=== PATIENT | female | born 1995 | race Caucasian/White ===

== ENCOUNTER 2023-05-03 06:41 | Inpatient (IN) | payer OTHER ==
[2023-05-03 06:53] VITALS: BMI 24.7
[2023-05-03] MEDS ORDERED: HYDROmorphone HCl 2 MG/ML VIAL ONE ×4 (07:53→10:40)
[2023-05-03] MEDS: SODIUM CHLORIDE 0.9% 500 ML INFUS.BAG IV ONE (08:21)
[2023-05-03] MEDS: HYDROmorphone HCl 2 MG/ML VIAL IVPUSH ONE ×4 (08:21→10:49)
[2023-05-03 08:31] LABS: VENOUS O2 SATURATION 26.2 % (70-80); VENOUS PCO2 50.3 mmHg (38-52); VENOUS PH 7.349 (7.310-7.410)
[2023-05-03 08:38] LABS: EOS % 6.7 % (0-4.5); HEMATOCRIT 25.7 % (32.4-45.2); HEMOGLOBIN 8.7 GM/dL (10.7-15.3); LYMPH % 46.8 % (8-40); MCH 30.1 pg (25.7-33.7); MCHC 33.7 g/dl (32.0-36.0); MEAN CELL VOLUME 89.1 fl (80-96); MEAN PLT VOLUME 7.5 fl (7.5-11.1); MONO % 11.5 % (3.8-10.2); PLATELET COUNT 568 10^3/uL (134-434); RBC 2.88 M/mm3 (3.60-5.2); RDW 20.6 % (11.6-15.6); RETICULOCYTES 4.62 % (0.5-1.5); WHITE BLOOD COUNT 8.1 K/mm3 (4.0-10.0)
[2023-05-03 09:04] LABS: CALCIUM 9.3 mg/dL (8.5-10.1)
[2023-05-03 09:05] LABS: BLOOD UREA NITROGEN 4.6 mg/dL (7-18)
[2023-05-03 09:07] LABS: CREATININE 0.7 mg/dL (0.55-1.3)
[2023-05-03 09:10] LABS: BILIRUBIN,TOTAL 1.3 mg/dL (0.2-1); TOT PROT 8.9 g/dl (6.4-8.2)
[2023-05-03 09:49] LABS: PH,URINE 6.5 (5.0-8.0); URINE APPEARANCE CLEAR; URINE BILIRUBIN NEGATIVE (NEGATIVE); URINE COLOR YELLOW; URINE GLUCOSE (UA) NEGATIVE (NEGATIVE); URINE KETONE NEGATIVE (NEGATIVE); URINE LEUK ESTERASE NEGATIVE (NEGATIVE); URINE NITRITE NEGATIVE (NEGATIVE); URINE PROTEIN NEGATIVE (NEGATIVE); URINE UROBILINOGEN 0.2 mg/dL (0.2-1.0)
[2023-05-03 10:33] LABS: ANISOCYTOSIS 2+; MACROCYTOSIS 0; OVALOCYTE 1+; TARGET CELLS 3+
[2023-05-03] MEDS ORDERED: ACETAMINOPHEN INJECTION 100 ML IVPB ONE (10:41)
[2023-05-03] MEDS ORDERED: KETOROLAC TROMETHAMINE 15 MG/ML VIAL ONE (10:41)
[2023-05-03] MEDS: ACETAMINOPHEN 1000 MG/100 ML BAG IVPB ONE (10:48)
[2023-05-03] MEDS: KETOROLAC TROMETHAMINE 15 MG/ML VIAL IVPUSH ONE (10:49)
[2023-05-03 11:05] LABS: POTASSIUM 5.1 mmol/L (3.5-5.1)
[2023-05-03 11:06] LABS: CALCIUM 8.9 mg/dL (8.5-10.1)
[2023-05-03 11:07] LABS: BLOOD UREA NITROGEN 3.9 mg/dL (7-18)
[2023-05-03 11:10] LABS: CREATININE 0.8 mg/dL (0.55-1.3)
[2023-05-03] MEDS ORDERED: APIXABAN 5 MG TABLET ONE (13:32)
[2023-05-03] MEDS ORDERED: LORATADINE 10 MG TABLET ONE (13:32)
[2023-05-03] MEDS ORDERED: oxyCODONE HCL 5 MG TABLET ONE (13:33)
[2023-05-03] MEDS: oxyCODONE HCL 5 MG TABLET PO PRN (13:43)
[2023-05-03] MEDS: APIXABAN 5 MG TABLET PO SCH (13:48)
[2023-05-03] MEDS: LORATADINE 10 MG TABLET PO SCH (13:48)
[2023-05-03] MEDS: LACTATED RINGERS SOLUTION 1,000 ML/1,000 ML INFUS.BAG IV SCH (13:56)
[2023-05-03] MEDS ORDERED: HYDROmorphone HCl 2 MG/ML VIAL IVPUSH PRN (15:00)
[2023-05-03] MEDS: HYDROXYUREA 500 MG CAPSULE PO SCH (18:23)
[2023-05-03] MEDS: HYDROmorphone HCl 2 MG/ML VIAL IVPB PRN (18:40)
[2023-05-03] MEDS: KETOROLAC TROMETHAMINE 15 MG/ML VIAL IVPUSH PRN (20:17)
[2023-05-03] MEDS: SENNOSIDES 8.8 MG/5 ML SYRUP PO SCH (23:09)
[2023-05-04] MEDS: PANTOPRAZOLE 40 MG TABLET PO SCH (10:45)
[2023-05-04] MEDS: FOLIC ACID 1 MG TABLET (FP) PO SCH (12:14)
[2023-05-04 12:35] LABS: HEMATOCRIT 22.9 % (32.4-45.2); HEMOGLOBIN 7.8 GM/dL (10.7-15.3); MCH 30.6 pg (25.7-33.7); MCHC 34.2 g/dl (32.0-36.0); MEAN CELL VOLUME 89.6 fl (80-96); PLATELET COUNT 483 10^3/uL (134-434); RBC 2.55 M/mm3 (3.60-5.2); RDW 19.7 % (11.6-15.6)
[2023-05-04 13:17] LABS: POTASSIUM 3.9 mmol/L (3.5-5.1)
[2023-05-04 13:24] LABS: BLOOD UREA NITROGEN 5.8 mg/dL (7-18); CALCIUM 8.8 mg/dL (8.5-10.1)
[2023-05-04 13:26] LABS: ALBUMIN 3.3 g/dl (3.4-5.0); MAGNESIUM 1.9 mg/dL (1.8-2.4)
[2023-05-04 13:29] LABS: CREATININE 0.7 mg/dL (0.55-1.3); PHOSPHOROUS 4.3 mg/dL (2.5-4.9)
[2023-05-04 13:30] LABS: BILIRUBIN,TOTAL 1.4 mg/dL (0.2-1); TOT PROT 7.1 g/dl (6.4-8.2)
[2023-05-04] MEDS ORDERED: ACETAMINOPHEN 1000 MG/100 ML BAG IVPB PRN (15:57)
[2023-05-04] MEDS: oxyCODONE HCL 5 MG TABLET PO PRN (16:16)
[2023-05-04] MEDS: morphine SULFATE 4 MG/ML VIAL IVPUSH PRN (18:58)
[2023-05-05] MEDS: SODIUM CHLORIDE 1,000 ML IV SCH (13:38)
[2023-05-06 11:30] LABS: HEMATOCRIT 19.9 % (32.4-45.2); MCH 30.3 pg (25.7-33.7); MCHC 34.1 g/dl (32.0-36.0); MEAN CELL VOLUME 88.8 fl (80-96); MEAN PLT VOLUME 7.1 fl (7.5-11.1); PLATELET COUNT 407 10^3/uL (134-434); RBC 2.24 M/mm3 (3.60-5.2); RDW 19.3 % (11.6-15.6); WHITE BLOOD COUNT 9.3 K/mm3 (4.0-10.0)
[2023-05-06 11:37] LABS: HEMOGLOBIN 6.8 GM/dL (10.7-15.3)
[2023-05-06 11:41] LABS: POTASSIUM 3.8 mmol/L (3.5-5.1)
[2023-05-06 11:44] LABS: BLOOD UREA NITROGEN 7.6 mg/dL (7-18)
[2023-05-06 11:47] LABS: CREATININE 0.8 mg/dL (0.55-1.3)
[2023-05-06 11:48] LABS: BILIRUBIN,TOTAL 1.3 mg/dL (0.2-1); TOT PROT 6.5 g/dl (6.4-8.2)
[2023-05-06] MEDS: morphine SULFATE 4 MG/ML VIAL IVPUSH PRN (15:44)
[2023-05-07 06:48] VITALS: RESP 18
[2023-05-07 09:11] LABS: HEMATOCRIT 23.3 % (32.4-45.2); HEMOGLOBIN 8.1 GM/dL (10.7-15.3); MCH 30.7 pg (25.7-33.7); MCHC 34.9 g/dl (32.0-36.0); MEAN CELL VOLUME 87.9 fl (80-96); MEAN PLT VOLUME 7.2 fl (7.5-11.1); PLATELET COUNT 406 10^3/uL (134-434); RBC 2.65 M/mm3 (3.60-5.2); RDW 18.7 % (11.6-15.6); WHITE BLOOD COUNT 8.1 K/mm3 (4.0-10.0)
[2023-05-07 09:26] LABS: POTASSIUM 3.1 mmol/L (3.5-5.1)
[2023-05-07 09:28] LABS: CALCIUM 8.1 mg/dL (8.5-10.1)
[2023-05-07 09:29] LABS: ALBUMIN 2.7 g/dl (3.4-5.0); BLOOD UREA NITROGEN 5.9 mg/dL (7-18)
[2023-05-07 09:32] LABS: CREATININE 0.7 mg/dL (0.55-1.3)
[2023-05-07 09:33] LABS: TOT PROT 6.4 g/dl (6.4-8.2)
[2023-05-07 14:09] VITALS: BP 110/67; PULSE 81; TEMP 98.7
== END 2023-05-07 14:14 | disposition home or self-care (01) | DRG 662 ==
LOC: JER 06:41 → JERBED 10:33 → OBSVTOIN 12:09 → J5S 17:33
PROVIDERS: ADMIT Internal Medicine
DX: D57.00 Hb-SS disease with crisis, unspecified (principal); F11.20 Opioid dependence, uncomplicated; E87.5 Hyperkalemia; M25.532 Pain in left wrist; F39 Unspecified mood [affective] disorder
CPT/HCPCS: 36415; 36430; 71046-TC-FY; 73110-TC-LT-FY; 73130-TC-LT-FY; 73200-TC-RT; 80048; 80053; 81003; 82728; 82803; 83010; 83540; 83550; 83615; 83735; 84100; 84703; 85025; 85027; 85045; 86850; 86900; 86901; 86902; 86922; 93005; 93010; 93971; 97116-GP; 97161-GP; 99285-25; G0378; J0131; J8999; P9058

== ENCOUNTER 2023-05-16 02:12 | Emergency (ER) | payer OTHER ==
[2023-05-16 02:20] VITALS: BP 124/75; PULSE 85; RESP 18; TEMP 97.6; BMI 24.7
[2023-05-16] MEDS ORDERED: morphine SULFATE 4 MG/ML VIAL ONE (03:11)
[2023-05-16] MEDS: SODIUM CHLORIDE 0.9% 500 ML INFUS.BAG IV ONE (03:41)
[2023-05-16] MEDS: morphine CARPU-JECT 4 MG/1 ML DISP.SYRIN IVPUSH ONE (03:41)
[2023-05-16 03:54] LABS: BASO % 1.3 % (0-2.0); EOS % 2.4 % (0-4.5); HEMATOCRIT 26.6 % (32.4-45.2); HEMOGLOBIN 9.2 GM/dL (10.7-15.3); LYMPH % 37.4 % (8-40); MCH 30.3 pg (25.7-33.7); MCHC 34.6 g/dl (32.0-36.0); MEAN CELL VOLUME 87.7 fl (80-96); MEAN PLT VOLUME 6.8 fl (7.5-11.1); MONO % 10.6 % (3.8-10.2); NEUT % 48.3 % (42.8-82.8); PLATELET COUNT 528 10^3/uL (134-434); RBC 3.03 M/mm3 (3.60-5.2); RDW 17.8 % (11.6-15.6); RETICULOCYTES 2.74 % (0.5-1.5); WHITE BLOOD COUNT 10.9 K/mm3 (4.0-10.0)
[2023-05-16 03:55] LABS: PH,URINE 7.5 (5.0-8.0); URINE APPEARANCE CLEAR; URINE BILIRUBIN NEGATIVE (NEGATIVE); URINE COLOR YELLOW; URINE GLUCOSE (UA) NEGATIVE (NEGATIVE); URINE KETONE NEGATIVE (NEGATIVE); URINE LEUK ESTERASE NEGATIVE (NEGATIVE); URINE NITRITE NEGATIVE (NEGATIVE); URINE PROTEIN NEGATIVE (NEGATIVE); URINE UROBILINOGEN 0.2 mg/dL (0.2-1.0)
[2023-05-16 04:08] LABS: INR 1.17 (0.83-1.09); PROTHROMBIN TIME (PATIENT) 13.6 SEC (9.7-13.0)
[2023-05-16 04:11] LABS: ACTIVATED PTT 48.7 SECONDS (25.2-36.5)
[2023-05-16 04:13] LABS: POTASSIUM 3.7 mmol/L (3.5-5.1)
[2023-05-16 04:15] LABS: CALCIUM 8.4 mg/dL (8.5-10.1)
[2023-05-16 04:16] LABS: BLOOD UREA NITROGEN 10.7 mg/dL (7-18)
[2023-05-16 04:19] LABS: CREATININE 0.7 mg/dL (0.55-1.3)
[2023-05-16 04:21] LABS: BILIRUBIN,TOTAL 0.8 mg/dL (0.2-1); TOT PROT 7.8 g/dl (6.4-8.2)
[2023-05-16] MEDS ORDERED: HYDROmorphone HCl 2 MG/ML VIAL ONE (05:14)
[2023-05-16] MEDS: HYDROmorphone HCl 2 MG/ML VIAL IVPUSH ONE (05:24)
[2023-05-16 05:58] LABS: ALBUMIN 3.6 g/dl (3.4-5.0)
== END 2023-05-16 06:16 | disposition home or self-care (01) ==
LOC: JER 02:12
PROC: 3E033GC Introduction of Other Therapeutic Substance into Peripheral Vein, Percutaneous Approach (ICD-10-PCS; principal; 2023-05-16)
PROC: 3E033GC Introduction of Other Therapeutic Substance into Peripheral Vein, Percutaneous Approach (ICD-10-PCS; 2023-05-16)
PROC: 3E033GC Introduction of Other Therapeutic Substance into Peripheral Vein, Percutaneous Approach (ICD-10-PCS; 2023-05-16)
DX: D57.00 Hb-SS disease with crisis, unspecified (principal); R51.9 Headache, unspecified; M25.559 Pain in unspecified hip
CPT/HCPCS: 36415; 71045-TC-FY; 80053; 81003; 82746; 84484; 84703; 85025; 85045; 85610; 85730; 87086; 93005; 93010; 96374; 96375; 99285-25

== ENCOUNTER 2023-05-19 20:45 | Emergency (ER) | payer OTHER ==
[2023-05-19 20:49] VITALS: TEMP 98.3; BMI 24.7
[2023-05-19] MEDS: ACETAMINOPHEN 1000 MG/100 ML BAG IVPB ONE (21:51)
[2023-05-19] MEDS: HYDROmorphone HCl 2 MG/ML VIAL IVPB ONE ×2 (21:51→23:56)
[2023-05-19] MEDS: diphenhydrAMINE HCL 25 MG CAPSULE (FP) PO ONE (21:51)
[2023-05-19] MEDS: LACTATED RINGERS SOLUTION 1000 ML INFUS.BAG IV ONE ×2 (21:51→23:18)
[2023-05-19] MEDS ORDERED: HYDROmorphone HCl 2 MG/ML VIAL ONE ×2 (21:53→23:49)
[2023-05-19] MEDS ORDERED: diphenhydrAMINE HCL 25 MG CAPSULE (FP) PO ONE (21:53)
[2023-05-19] MEDS ORDERED: ACETAMINOPHEN INJECTION 100 ML IVPB ONE (21:54)
[2023-05-19 22:41] LABS: BASO % 1.3 % (0-2.0); EOS % 1.9 % (0-4.5); HEMOGLOBIN 9.5 GM/dL (10.7-15.3); LYMPH % 21.6 % (8-40); MCH 29.6 pg (25.7-33.7); MCHC 33.8 g/dl (32.0-36.0); MEAN CELL VOLUME 87.8 fl (80-96); MONO % 7.5 % (3.8-10.2); NEUT % 67.7 % (42.8-82.8); PLATELET COUNT 557 10^3/uL (134-434); RBC 3.19 M/mm3 (3.60-5.2); RDW 17.3 % (11.6-15.6); WHITE BLOOD COUNT 11.8 K/mm3 (4.0-10.0)
[2023-05-19 22:47] LABS: INR 1.13 (0.83-1.09); PROTHROMBIN TIME (PATIENT) 13.1 SEC (9.7-13.0)
[2023-05-19 22:48] LABS: ACTIVATED PTT 26.6 SECONDS (25.2-36.5)
[2023-05-19 23:09] LABS: POTASSIUM 4.2 mmol/L (3.5-5.1)
[2023-05-19 23:10] LABS: LACTIC ACID 8.4 mmol/L (0.4-2.0)
[2023-05-19] MEDS: FAMOTIDINE 20 MG/50 ML IVPB 20 MG/50 ML MG IVPB ONE (23:10)
[2023-05-19 23:11] LABS: CALCIUM 9.1 mg/dL (8.5-10.1); SICKLE CELL SCREEN POS (NEGATIVE)
[2023-05-19 23:12] LABS: ALBUMIN 3.7 g/dl (3.4-5.0); BLOOD UREA NITROGEN 10.6 mg/dL (7-18); MAGNESIUM 2.3 mg/dL (1.8-2.4)
[2023-05-19 23:15] LABS: CREATININE 0.7 mg/dL (0.55-1.3)
[2023-05-19 23:16] LABS: BILIRUBIN,TOTAL 0.8 mg/dL (0.2-1)
[2023-05-19] MEDS ORDERED: FAMOTIDINE 20 MG/50 ML IVPB 20 MG/50 ML MG IVPB ONE (23:21)
[2023-05-20 02:07] VITALS: BP 121/75; PULSE 76; RESP 16
== END 2023-05-20 04:27 | disposition home or self-care (01) ==
LOC: JER 20:45
PROC: 3E033GC Introduction of Other Therapeutic Substance into Peripheral Vein, Percutaneous Approach (ICD-10-PCS; principal; 2023-05-19)
PROC: 3E033NZ Introduction of Analgesics, Hypnotics, Sedatives into Peripheral Vein, Percutaneous Approach (ICD-10-PCS; 2023-05-19)
PROC: 3E033GC Introduction of Other Therapeutic Substance into Peripheral Vein, Percutaneous Approach (ICD-10-PCS; 2023-05-19)
PROC: 3E033GC Introduction of Other Therapeutic Substance into Peripheral Vein, Percutaneous Approach (ICD-10-PCS; 2023-05-19)
PROC: 3E033GC Introduction of Other Therapeutic Substance into Peripheral Vein, Percutaneous Approach (ICD-10-PCS; 2023-05-19)
DX: D57.00 Hb-SS disease with crisis, unspecified (principal); M25.50 Pain in unspecified joint; R07.89 Other chest pain; Z20.822 Contact with and (suspected) exposure to COVID-19
CPT/HCPCS: 0241U-QW; 36415; 71045-TC-FY; 72170-TC-FY; 80053; 83010; 83605; 83735; 84703; 85025; 85045; 85610; 85660; 85730; 86850; 86900; 86901; 93005; 93010; 99285-25; J0131

== ENCOUNTER 2023-05-23 17:07 | Emergency (ER) | payer OTHER ==
[2023-05-23 17:17] VITALS: RESP 18; TEMP 98.7; BMI 25.7
[2023-05-23] MEDS ORDERED: HYDROmorphone HCl 2 MG/ML VIAL ONE ×2 (18:08→21:09)
[2023-05-23] MEDS: HYDROmorphone HCl 2 MG/ML VIAL IVPUSH ONE ×2 (19:00→21:15)
[2023-05-23] MEDS: LACTATED RINGERS SOLUTION 1000 ML INFUS.BAG IV ONE (19:05)
[2023-05-23 19:28] LABS: BASO % 1.5 % (0-2.0); EOS % 2.6 % (0-4.5); HEMATOCRIT 27.9 % (32.4-45.2); HEMOGLOBIN 9.1 GM/dL (10.7-15.3); MCH 28.6 pg (25.7-33.7); MCHC 32.7 g/dl (32.0-36.0); MEAN CELL VOLUME 87.6 fl (80-96); MEAN PLT VOLUME 7.3 fl (7.5-11.1); MONO % 7.8 % (3.8-10.2); NEUT % 58.1 % (42.8-82.8); PLATELET COUNT 637 10^3/uL (134-434); RBC 3.18 M/mm3 (3.60-5.2); RDW 17.5 % (11.6-15.6); WHITE BLOOD COUNT 9.7 K/mm3 (4.0-10.0)
[2023-05-23 19:35] LABS: POTASSIUM 4.1 mmol/L (3.5-5.1)
[2023-05-23 19:37] LABS: CALCIUM 8.8 mg/dL (8.5-10.1)
[2023-05-23 19:38] LABS: ALBUMIN 3.7 g/dl (3.4-5.0); BLOOD UREA NITROGEN 9.9 mg/dL (7-18)
[2023-05-23 19:40] LABS: CREATININE 0.7 mg/dL (0.55-1.3)
[2023-05-23 19:42] LABS: BILIRUBIN,TOTAL 0.9 mg/dL (0.2-1)
[2023-05-23 19:43] LABS: TOT PROT 7.6 g/dl (6.4-8.2)
[2023-05-23 22:15] VITALS: BP 111/55; PULSE 92
== END 2023-05-23 22:35 | disposition home or self-care (01) ==
LOC: JER 17:07
PROC: 3E033NZ Introduction of Analgesics, Hypnotics, Sedatives into Peripheral Vein, Percutaneous Approach (ICD-10-PCS; principal; 2023-05-23)
PROC: 3E030GC Introduction of Other Therapeutic Substance into Peripheral Vein, Open Approach (ICD-10-PCS; 2023-05-23)
PROC: 3E030GC Introduction of Other Therapeutic Substance into Peripheral Vein, Open Approach (ICD-10-PCS; 2023-05-23)
PROC: 3E030GC Introduction of Other Therapeutic Substance into Peripheral Vein, Open Approach (ICD-10-PCS; 2023-05-23)
DX: M25.551 Pain in right hip (principal); M25.552 Pain in left hip; D57.00 Hb-SS disease with crisis, unspecified
CPT/HCPCS: 36415; 71045-TC-FY; 80053; 83010; 84703; 85025; 85045; 86850; 86900; 86901; 96374; 96375; 99284-25

== ENCOUNTER 2023-06-07 06:25 | Emergency (ER) | payer OTHER ==
[2023-06-07 06:29] VITALS: BMI 25.7
[2023-06-07] MEDS ORDERED: HYDROmorphone HCl 2 MG/ML VIAL ONE ×2 (08:14→10:19)
[2023-06-07] MEDS: LACTATED RINGERS SOLUTION 1000 ML INFUS.BAG IV ONE ×2 (08:22→10:30)
[2023-06-07] MEDS: HYDROmorphone HCl 2 MG/ML VIAL IVPUSH ONE ×2 (08:22→10:30)
[2023-06-07 08:33] LABS: BASO % 1.3 % (0-2.0); EOS % 2.9 % (0-4.5); HEMATOCRIT 26.9 % (32.4-45.2); HEMOGLOBIN 9.2 GM/dL (10.7-15.3); LYMPH % 27.9 % (8-40); MCH 29.4 pg (25.7-33.7); MEAN CELL VOLUME 86.4 fl (80-96); MEAN PLT VOLUME 7.3 fl (7.5-11.1); MONO % 5.7 % (3.8-10.2); NEUT % 62.2 % (42.8-82.8); PLATELET COUNT 509 10^3/uL (134-434); RBC 3.11 M/mm3 (3.60-5.2); RDW 17.1 % (11.6-15.6); WHITE BLOOD COUNT 11.6 K/mm3 (4.0-10.0)
[2023-06-07 09:23] LABS: POTASSIUM 3.9 mmol/L (3.5-5.1)
[2023-06-07 09:25] LABS: CALCIUM 9.2 mg/dL (8.5-10.1)
[2023-06-07 09:26] LABS: ALBUMIN 3.9 g/dl (3.4-5.0)
[2023-06-07 09:28] LABS: CREATININE 0.7 mg/dL (0.55-1.3)
[2023-06-07 09:30] LABS: BILIRUBIN,TOTAL 1.4 mg/dL (0.2-1)
[2023-06-07 10:25] LABS: RETICULOCYTES 4.22 % (0.5-1.5)
[2023-06-07] MEDS ORDERED: oxyCODONE HCL 5 MG TABLET ONE (11:57)
[2023-06-07] MEDS: oxyCODONE HCL 5 MG TABLET PO ONE (12:06)
[2023-06-07 12:20] VITALS: BP 106/67; PULSE 74; RESP 16; TEMP 97.8
== END 2023-06-07 12:20 | disposition home or self-care (01) ==
LOC: JER 06:25
PROC: 3E033GC Introduction of Other Therapeutic Substance into Peripheral Vein, Percutaneous Approach (ICD-10-PCS; principal; 2023-06-07)
PROC: 3E033GC Introduction of Other Therapeutic Substance into Peripheral Vein, Percutaneous Approach (ICD-10-PCS; 2023-06-07)
PROC: 3E033NZ Introduction of Analgesics, Hypnotics, Sedatives into Peripheral Vein, Percutaneous Approach (ICD-10-PCS; 2023-06-07)
PROC: 3E033NZ Introduction of Analgesics, Hypnotics, Sedatives into Peripheral Vein, Percutaneous Approach (ICD-10-PCS; 2023-06-07)
PROC: 3E033GC Introduction of Other Therapeutic Substance into Peripheral Vein, Percutaneous Approach (ICD-10-PCS; 2023-06-07)
DX: D57.00 Hb-SS disease with crisis, unspecified (principal); R07.2 Precordial pain; M25.551 Pain in right hip; M25.552 Pain in left hip
CPT/HCPCS: 36415; 71046-TC-FY; 80053; 84703; 85025; 85045; 86850; 86900; 86901; 93005; 93010; 99285-25

== ENCOUNTER 2023-06-08 17:55 | Inpatient (IN) | payer OTHER ==
[2023-06-08 18:07] VITALS: BMI 25.7
[2023-06-08] MEDS ORDERED: IBUPROFEN 100 MG/5 ML UNIT DOSE CUPS ONE (18:26)
[2023-06-08] MEDS ORDERED: HYDROmorphone HCl 2 MG/ML VIAL ONE ×3 (18:59→22:16)
[2023-06-08 19:02] LABS: BASO % 1.2 % (0-2.0); EOS % 2.5 % (0-4.5); HEMATOCRIT 27.4 % (32.4-45.2); HEMOGLOBIN 9.4 GM/dL (10.7-15.3); LYMPH % 26.2 % (8-40); MCH 29.5 pg (25.7-33.7); MCHC 34.4 g/dl (32.0-36.0); MEAN CELL VOLUME 85.9 fl (80-96); MEAN PLT VOLUME 7.1 fl (7.5-11.1); MONO % 7.9 % (3.8-10.2); NEUT % 62.2 % (42.8-82.8); PLATELET COUNT 538 10^3/uL (134-434); RBC 3.19 M/mm3 (3.60-5.2); RDW 17.8 % (11.6-15.6); RETICULOCYTES 4.97 % (0.5-1.5)
[2023-06-08] MEDS: HYDROmorphone HCl 2 MG/ML VIAL IVPUSH ONE ×3 (19:06→22:24)
[2023-06-08] MEDS: LACTATED RINGERS SOLUTION 1000 ML INFUS.BAG IV ONE (19:06)
[2023-06-08 19:24] LABS: POTASSIUM 3.9 mmol/L (3.5-5.1)
[2023-06-08 19:26] LABS: CALCIUM 9.1 mg/dL (8.5-10.1)
[2023-06-08 19:27] LABS: ALBUMIN 4.1 g/dl (3.4-5.0); BLOOD UREA NITROGEN 9.2 mg/dL (7-18)
[2023-06-08 19:30] LABS: CREATININE 0.8 mg/dL (0.55-1.3)
[2023-06-08 19:31] LABS: BILIRUBIN,TOTAL 1.2 mg/dL (0.2-1); TOT PROT 8.2 g/dl (6.4-8.2)
[2023-06-08 22:46] LABS: BILIRUBIN,DIRECT 0.3 mg/dL (0.0-0.2)
[2023-06-08] MEDS: LACTATED RINGERS SOLUTION 1,000 ML/1,000 ML INFUS.BAG IV SCH (23:48)
[2023-06-09] MEDS: HYDROmorphone HCl 2 MG/ML VIAL IVPUSH PRN (00:46)
[2023-06-09] MEDS: morphine SULFATE 4 MG/ML VIAL IVPUSH ONE (01:55)
[2023-06-09] MEDS: HYDROXYUREA 500 MG CAPSULE PO SCH (05:49)
[2023-06-09 08:56] LABS: HEMATOCRIT 24.9 % (32.4-45.2); HEMOGLOBIN 8.1 GM/dL (10.7-15.3); MCH 28.5 pg (25.7-33.7); MCHC 32.8 g/dl (32.0-36.0); MEAN PLT VOLUME 7.3 fl (7.5-11.1); PLATELET COUNT 460 10^3/uL (134-434); RBC 2.86 M/mm3 (3.60-5.2); RDW 17.9 % (11.6-15.6); WHITE BLOOD COUNT 10.4 K/mm3 (4.0-10.0)
[2023-06-09 09:23] LABS: POTASSIUM 3.5 mmol/L (3.5-5.1)
[2023-06-09 09:25] LABS: ALBUMIN 3.3 g/dl (3.4-5.0)
[2023-06-09 09:26] LABS: BLOOD UREA NITROGEN 8.2 mg/dL (7-18); CALCIUM 8.2 mg/dL (8.5-10.1); MAGNESIUM 1.8 mg/dL (1.8-2.4)
[2023-06-09 09:29] LABS: CREATININE 0.8 mg/dL (0.55-1.3); PHOSPHOROUS 4.3 mg/dL (2.5-4.9)
[2023-06-09 09:31] LABS: BILIRUBIN,TOTAL 1.1 mg/dL (0.2-1); TOT PROT 6.9 g/dl (6.4-8.2)
[2023-06-09] MEDS: morphine SULFATE 4 MG/ML VIAL IVPUSH PRN (09:41)
[2023-06-09] MEDS: GABAPENTIN 400 MG CAPSULE PO SCH ×2 (09:42→13:39)
[2023-06-09] MEDS: APIXABAN 5 MG TABLET PO SCH (09:42)
[2023-06-09] MEDS: ACETAMINOPHEN 325 MG TABLET (FP) PO SCH (11:18)
[2023-06-09] MEDS: POTASSIUM CHLORIDE TABS 20 MEQ TABLET.ER (FP) PO ONE (11:19)
[2023-06-09] MEDS: HYDROmorphone HCl 2 MG/ML VIAL IVPB PRN (11:30)
[2023-06-10] MEDS: HYDROmorphone HCl 2 MG/ML VIAL IVPB PRN (07:54)
[2023-06-10] MEDS: FOLIC ACID 1 MG TABLET (FP) PO SCH (10:34)
[2023-06-10] MEDS ORDERED: morphine SULFATE 4 MG/ML VIAL IVPUSH PRN (11:20)
[2023-06-10 12:38] LABS: HEMATOCRIT 23.2 % (32.4-45.2); HEMOGLOBIN 7.9 GM/dL (10.7-15.3); MCH 29.4 pg (25.7-33.7); MCHC 34.3 g/dl (32.0-36.0); MEAN CELL VOLUME 85.9 fl (80-96); MEAN PLT VOLUME 7.3 fl (7.5-11.1); MONO % 6.1 % (3.8-10.2); NEUT % 43.9 % (42.8-82.8); PLATELET COUNT 431 10^3/uL (134-434); RDW 17.9 % (11.6-15.6); WHITE BLOOD COUNT 8.5 K/mm3 (4.0-10.0)
[2023-06-10 12:56] LABS: POTASSIUM 3.5 mmol/L (3.5-5.1)
[2023-06-10 12:57] LABS: CALCIUM 8.8 mg/dL (8.5-10.1)
[2023-06-10 12:58] LABS: ALBUMIN 3.4 g/dl (3.4-5.0); MAGNESIUM 1.8 mg/dL (1.8-2.4)
[2023-06-10 13:00] LABS: CREATININE 0.9 mg/dL (0.55-1.3)
[2023-06-10 13:03] LABS: BILIRUBIN,TOTAL 1.2 mg/dL (0.2-1); TOT PROT 6.9 g/dl (6.4-8.2)
[2023-06-10] MEDS: morphine SULFATE 4 MG/ML VIAL IVPUSH PRN (14:46)
[2023-06-10] MEDS: HYDROmorphone HCL 2 MG TABLET PO PRN (17:15)
[2023-06-10] MEDS: DOCUSATE SODIUM 100 MG CAPSULE (FP) PO SCH (21:25)
[2023-06-11 11:36] VITALS: RESP 18
[2023-06-11 15:54] LABS: BASO % 1.3 % (0-2.0); EOS % 6.9 % (0-4.5); HEMATOCRIT 23.1 % (32.4-45.2); HEMOGLOBIN 7.9 GM/dL (10.7-15.3); MCH 29.1 pg (25.7-33.7); MCHC 34.2 g/dl (32.0-36.0); MEAN CELL VOLUME 85.2 fl (80-96); MEAN PLT VOLUME 7.3 fl (7.5-11.1); MONO % 6.4 % (3.8-10.2); NEUT % 26.4 % (42.8-82.8); PLATELET COUNT 461 10^3/uL (134-434); RBC 2.71 M/mm3 (3.60-5.2); RDW 17.7 % (11.6-15.6); WHITE BLOOD COUNT 7.1 K/mm3 (4.0-10.0)
[2023-06-11 16:10] LABS: POTASSIUM 3.7 mmol/L (3.5-5.1)
[2023-06-11 16:11] LABS: CALCIUM 8.3 mg/dL (8.5-10.1)
[2023-06-11 16:13] LABS: ALBUMIN 3.3 g/dl (3.4-5.0); BLOOD UREA NITROGEN 6.4 mg/dL (7-18); MAGNESIUM 1.8 mg/dL (1.8-2.4)
[2023-06-11 16:16] LABS: CREATININE 0.8 mg/dL (0.55-1.3)
[2023-06-11 16:18] LABS: TOT PROT 6.7 g/dl (6.4-8.2)
[2023-06-12 07:32] VITALS: BP 107/65; PULSE 71; TEMP 97.7
[2023-06-12 08:59] LABS: BASO % 1.4 % (0-2.0); EOS % 5.4 % (0-4.5); HEMATOCRIT 23.4 % (32.4-45.2); HEMOGLOBIN 7.9 GM/dL (10.7-15.3); LYMPH % 49.6 % (8-40); MCH 29.4 pg (25.7-33.7); MCHC 33.6 g/dl (32.0-36.0); MEAN CELL VOLUME 87.3 fl (80-96); MEAN PLT VOLUME 7.4 fl (7.5-11.1); MONO % 6.3 % (3.8-10.2); NEUT % 37.3 % (42.8-82.8); PLATELET COUNT 418 10^3/uL (134-434); RBC 2.68 M/mm3 (3.60-5.2); RDW 17.6 % (11.6-15.6); WHITE BLOOD COUNT 8.1 K/mm3 (4.0-10.0)
[2023-06-12] MEDS ORDERED: PORTA CATH FLUSH 10 ML IVPUSH PRN (09:00)
[2023-06-12 09:03] LABS: RETICULOCYTES 3.62 % (0.5-1.5)
[2023-06-12 09:18] LABS: POTASSIUM 3.8 mmol/L (3.5-5.1)
[2023-06-12 09:20] LABS: ALBUMIN 3.2 g/dl (3.4-5.0); BLOOD UREA NITROGEN 9.7 mg/dL (7-18); CALCIUM 8.7 mg/dL (8.5-10.1)
[2023-06-12 09:24] LABS: CREATININE 0.8 mg/dL (0.55-1.3)
[2023-06-12 09:26] LABS: TOT PROT 6.7 g/dl (6.4-8.2)
[2023-06-12] MEDS ORDERED: oxyCODONE HCL 5 MG TABLET PO PRN ×3 (11:23→11:55)
[2023-06-12] MEDS ORDERED: diphenhydrAMINE HCL 25 MG CAPSULE (FP) PO PRN (11:28)
[2023-06-12] MEDS ORDERED: ACETAMINOPHEN 325 MG TABLET (FP) PO PRN ×2 (11:30→11:55)
[2023-06-12] MEDS ORDERED: ACETAMINOPHEN 325 MG TABLET (FP) PO SCH ×2 (12:12→16:00)
[2023-06-12] MEDS: oxyCODONE HCL 5 MG TABLET PO PRN (12:21)
[2023-06-14 18:09] LABS: HGB SOLUBILITY Positive (Negative)
== END 2023-06-12 14:04 | disposition home or self-care (01) | DRG 662 ==
LOC: JER 17:55 → JERBED 21:27 → OBSVTOIN 23:35 → J8W 23:53
PROVIDERS: ADMIT Internal Medicine; ATTEND Internal Medicine
DX: D57.00 Hb-SS disease with crisis, unspecified (principal); F11.20 Opioid dependence, uncomplicated; F39 Unspecified mood [affective] disorder; G43.909 Migraine, unspecified, not intractable, without status migrainosus; K21.9 Gastro-esophageal reflux disease without esophagitis; M25.552 Pain in left hip; M54.9 Dorsalgia, unspecified
CPT/HCPCS: 36415; 71046-TC-FY; 80053; 82248; 83021; 83615; 83735; 84100; 84703; 85025; 85027; 85045; 85660; 93005; 93010; 99285-25; G0378; J8999

== ENCOUNTER 2023-06-28 00:17 | Emergency (ER) | payer OTHER ==
[2023-06-28 00:21] VITALS: TEMP 98.4; BMI 25.7
[2023-06-28 01:03] VITALS: BP 122/69; PULSE 94; RESP 19
[2023-06-28] MEDS ORDERED: HYDROmorphone HCl 2 MG/ML VIAL ONE ×2 (01:54→05:30)
[2023-06-28] MEDS: LACTATED RINGERS SOLUTION 1000 ML INFUS.BAG IV ONE (02:41)
[2023-06-28] MEDS: HYDROmorphone HCl 2 MG/ML VIAL IVPUSH ONE ×2 (02:41→05:39)
[2023-06-28 02:51] LABS: BASO % 1.3 % (0-2.0); EOS % 1.1 % (0-4.5); HEMATOCRIT 26.6 % (32.4-45.2); HEMOGLOBIN 9.1 GM/dL (10.7-15.3); LYMPH % 26.9 % (8-40); MCH 30.1 pg (25.7-33.7); MCHC 34.2 g/dl (32.0-36.0); MEAN CELL VOLUME 87.9 fl (80-96); MEAN PLT VOLUME 7.2 fl (7.5-11.1); MONO % 8.6 % (3.8-10.2); NEUT % 62.1 % (42.8-82.8); PLATELET COUNT 513 10^3/uL (134-434); RBC 3.03 M/mm3 (3.60-5.2); RDW 19.6 % (11.6-15.6); WHITE BLOOD COUNT 9.4 K/mm3 (4.0-10.0)
[2023-06-28 03:11] LABS: POTASSIUM 3.8 mmol/L (3.5-5.1)
[2023-06-28 03:13] LABS: CALCIUM 9.1 mg/dL (8.5-10.1)
[2023-06-28 03:14] LABS: BLOOD UREA NITROGEN 10.2 mg/dL (7-18)
[2023-06-28 03:17] LABS: CREATININE 0.7 mg/dL (0.55-1.3)
[2023-06-28 03:18] LABS: BILIRUBIN,TOTAL 1.2 mg/dL (0.2-1); TOT PROT 8.3 g/dl (6.4-8.2)
== END 2023-06-28 06:29 | disposition home or self-care (01) ==
LOC: JER 00:17
PROC: 3E030GC Introduction of Other Therapeutic Substance into Peripheral Vein, Open Approach (ICD-10-PCS; principal; 2023-06-28)
PROC: 3E030GC Introduction of Other Therapeutic Substance into Peripheral Vein, Open Approach (ICD-10-PCS; 2023-06-28)
PROC: 3E030GC Introduction of Other Therapeutic Substance into Peripheral Vein, Open Approach (ICD-10-PCS; 2023-06-28)
PROC: 3E030GC Introduction of Other Therapeutic Substance into Peripheral Vein, Open Approach (ICD-10-PCS; 2023-06-28)
DX: D57.00 Hb-SS disease with crisis, unspecified (principal); M54.50 Low back pain, unspecified; R07.89 Other chest pain
CPT/HCPCS: 36415; 71045-TC-FY; 80053; 84703; 85025; 93005; 93010; 96374; 96375; 96376; 99285-25

== ENCOUNTER 2023-07-26 03:24 | Emergency (ER) | payer OTHER ==
[2023-07-26 03:30] VITALS: BP 138/80; PULSE 86; RESP 17; TEMP 98.5; BMI 25.7
[2023-07-26] MEDS ORDERED: HYDROmorphone HCl 2 MG/ML VIAL ONE ×2 (04:10→05:13)
[2023-07-26] MEDS: HYDROmorphone HCl 2 MG/ML VIAL IVPUSH ONE ×2 (04:31→05:19)
[2023-07-26 04:33] LABS: BASO % 1.5 % (0-2.0); EOS % 1.6 % (0-4.5); HEMATOCRIT 26.1 % (32.4-45.2); HEMOGLOBIN 8.8 GM/dL (10.7-15.3); LYMPH % 35.6 % (8-40); MCH 28.8 pg (25.7-33.7); MCHC 33.8 g/dl (32.0-36.0); MEAN CELL VOLUME 85.2 fl (80-96); MEAN PLT VOLUME 6.6 fl (7.5-11.1); MONO % 9.4 % (3.8-10.2); NEUT % 51.9 % (42.8-82.8); PLATELET COUNT 636 10^3/uL (134-434); RBC 3.06 M/mm3 (3.60-5.2); WHITE BLOOD COUNT 11.1 K/mm3 (4.0-10.0)
[2023-07-26 04:41] LABS: RETICULOCYTES 3.95 % (0.5-1.5)
[2023-07-26 04:52] LABS: POTASSIUM 3.6 mmol/L (3.5-5.1)
[2023-07-26 04:54] LABS: BLOOD UREA NITROGEN 11.4 mg/dL (7-18); CALCIUM 8.9 mg/dL (8.5-10.1)
[2023-07-26 04:55] LABS: ALBUMIN 3.8 g/dl (3.4-5.0)
[2023-07-26 04:58] LABS: CREATININE 0.9 mg/dL (0.55-1.3)
[2023-07-26 04:59] LABS: BILIRUBIN,TOTAL 0.9 mg/dL (0.2-1)
== END 2023-07-26 06:51 | disposition home or self-care (01) ==
LOC: JER 03:24
PROC: 3E033NZ Introduction of Analgesics, Hypnotics, Sedatives into Peripheral Vein, Percutaneous Approach (ICD-10-PCS; principal; 2023-07-26)
PROC: 3E033GC Introduction of Other Therapeutic Substance into Peripheral Vein, Percutaneous Approach (ICD-10-PCS; 2023-07-26)
PROC: 3E033NZ Introduction of Analgesics, Hypnotics, Sedatives into Peripheral Vein, Percutaneous Approach (ICD-10-PCS; 2023-07-26)
DX: D57.00 Hb-SS disease with crisis, unspecified (principal); M25.552 Pain in left hip
CPT/HCPCS: 36415; 71045-TC-FY; 72170-TC-FY; 80053; 84703; 85025; 85045; 93005; 93010; 99285-25

== ENCOUNTER 2023-09-19 15:48 | Emergency (ER) | payer OTHER ==
[2023-09-19 15:58] VITALS: BMI 25.7
[2023-09-19] MEDS ORDERED: HYDROmorphone HCL CARPU-JECT 2 MG/1 ML DISP.SYRIN ONE ×3 (16:44→20:48)
[2023-09-19] MEDS: HYDROmorphone HCl 2 MG/ML VIAL IVPUSH ONE ×3 (17:17→20:56)
[2023-09-19] MEDS: LACTATED RINGERS SOLUTION 1000 ML INFUS.BAG IV ONE (17:17)
[2023-09-19 17:26] LABS: INR 1.62 (0.83-1.09)
[2023-09-19 17:29] LABS: ACTIVATED PTT 38.8 SECONDS (25.2-36.5)
[2023-09-19 17:48] LABS: BASO % 0.9 % (0-2.0); EOS % 4.2 % (0-4.5); HEMATOCRIT 22.2 % (32.4-45.2); HEMOGLOBIN 7.6 GM/dL (10.7-15.3); MCH 27.9 pg (25.7-33.7); MCHC 34.1 g/dl (32.0-36.0); MEAN CELL VOLUME 81.7 fl (80-96); MEAN PLT VOLUME 7.5 fl (7.5-11.1); MONO % 5.9 % (3.8-10.2); PLATELET COUNT 490 10^3/uL (134-434); RBC 2.72 M/mm3 (3.60-5.2); RDW 23.6 % (11.6-15.6); RETICULOCYTES 8.27 % (0.5-1.5); WHITE BLOOD COUNT 9.9 K/mm3 (4.0-10.0)
[2023-09-19 17:50] LABS: ALBUMIN 3.8 g/dl (3.4-5.0); CALCIUM 9.1 mg/dL (8.5-10.1)
[2023-09-19 17:53] LABS: CREATININE 0.8 mg/dL (0.55-1.3)
[2023-09-19 17:56] LABS: BILIRUBIN,TOTAL 1.8 mg/dL (0.2-1); TOT PROT 7.8 g/dl (6.4-8.2)
[2023-09-19 18:59] LABS: ANISOCYTOSIS 2+; MACROCYTOSIS 0; SICKELED CELLS 2+; TARGET CELLS 2+; TEAR DROP CELLS 1+
[2023-09-19 20:19] VITALS: BP 118/79; PULSE 112; RESP 19; TEMP 99.5
[2023-09-19] MEDS: SODIUM CHLORIDE 0.9% 500 ML INFUS.BAG IV ONE (20:57)
== END 2023-09-19 22:59 | disposition home or self-care (01) ==
LOC: JER 15:48
PROC: 3E033GC Introduction of Other Therapeutic Substance into Peripheral Vein, Percutaneous Approach (ICD-10-PCS; principal; 2023-09-19)
PROC: 3E033NZ Introduction of Analgesics, Hypnotics, Sedatives into Peripheral Vein, Percutaneous Approach (ICD-10-PCS; 2023-09-19)
PROC: 3E033NZ Introduction of Analgesics, Hypnotics, Sedatives into Peripheral Vein, Percutaneous Approach (ICD-10-PCS; 2023-09-19)
PROC: 3E033NZ Introduction of Analgesics, Hypnotics, Sedatives into Peripheral Vein, Percutaneous Approach (ICD-10-PCS; 2023-09-19)
PROC: 3E033GC Introduction of Other Therapeutic Substance into Peripheral Vein, Percutaneous Approach (ICD-10-PCS; 2023-09-19)
DX: D57.00 Hb-SS disease with crisis, unspecified (principal); M79.10 Myalgia, unspecified site; R53.81 Other malaise
CPT/HCPCS: 36415; 71046-TC-FY; 80053; 84703; 85025; 85045; 85610; 85730; 93970-TC; 99285-25